=== PATIENT | female | born 1940 | race Caucasian/White ===

== ENCOUNTER 2020-03-01 08:59 | Outpatient (CLI) | payer MEDICARE, SELFPAY ==
--- NOTE | 2020-03-01 09:06 | MM_ITS ---
WS: [id number] BILATERAL DIGITAL SCREENING MAMMOGRAPHY WITH CAD CLINICAL INFORMATION: SCREENING HISTORY: Screening mammogram. Right breast soreness COMPARISON: TECHNIQUE: Bilateral CC and MLO views. FINDINGS: Scattered fibroglandular densities bilaterally. No suspicious focal mass, asymmetry, calcifications, or architectural distortion. No evidence of malignancy. Vascular calcification. MM/[place] [id number] IMPRESSION: BI-RADS: 2-Benign FOLLOW UP: 1 Year Follow-up Recommend return to annual screening mammography.
== END 2020-03-01 09:00 | disposition home or self-care (01) ==
LOC: RADSHAW 09:05
PROVIDERS: PCP Family Medicine; Visit Provider Family Medicine
DX: Z12.31 Encounter for screening mammogram for malignant neoplasm of breast (principal)
CPT/HCPCS: 77067

== ENCOUNTER → 2020-03-23 09:26 | Outpatient (BNVA) | payer MEDICARE, SELFPAY | PROVIDERS: PCP Family Medicine; Referring Provider Dermatology; Visit Provider Dermatology | DX: L81.4 Other melanin hyperpigmentation (principal); D22.9 Melanocytic nevi, unspecified; L82.1 Other seborrheic keratosis; L82.0 Inflamed seborrheic keratosis | CPT/HCPCS: 17110; 99203 ==

== ENCOUNTER 2021-04-07 13:36 | Outpatient (CLI) | payer MEDICARE, SELFPAY ==
--- NOTE | 2021-04-07 13:40 | MM_ITS ---
WS: [id number] BILATERAL DIGITAL SCREENING MAMMOGRAPHY WITH CAD CLINICAL INFORMATION: SCREENING HISTORY: Screening mammogram. No current complaints. COMPARISON: March 01, 2020 TECHNIQUE: Bilateral CC and MLO views. FINDINGS: Scattered fibroglandular densities bilaterally. No suspicious focal mass, asymmetry, calcifications, or architectural distortion. No evidence of malignancy. A few tiny punctate calcifications. MM/[place] [id number] IMPRESSION: BI-RADS: 2-Benign FOLLOW UP: 1 Year Follow-up Recommend return to annual screening mammography.
== END 2021-04-07 13:37 | disposition home or self-care (01) ==
LOC: RADSHAW 13:39
PROVIDERS: PCP Family Medicine; Visit Provider Family Medicine
DX: Z12.31 Encounter for screening mammogram for malignant neoplasm of breast (principal)
CPT/HCPCS: 77067

== ENCOUNTER 2022-04-13 08:17 | Outpatient (CLI) | payer MEDICARE, SELFPAY ==
--- NOTE | 2022-04-13 08:26 | MM_ITS ---
WS: [id number] SCREENING DIGITAL BREAST TOMOSYNTHESIS MAMMOGRAM WITH CAD HISTORY: SCREEN COMPARISON: 04/07/2021, 03/01/2020 and 02/27/2019 Bilateral CC and MLO with tomosynthesis and synthetic mammography submitted. Computer aided detection analyzed. Breast composition: There are scattered areas of fibroglandular density. As a spiculated asymmetry me asuring 8.2 mm and this posterior LEFT breast just medial to the nipple line. Not identified with cer tainty on the lateral projection. This is just below the nipple line. No additional abnormalities. MM/[place] [id number] IMPRESSION: BI-RADS: 0-Incomplete: Need additional imaging evaluation FOLLOW UP: Need Additional Imaging LEFT breast: Spot compression views (CC ). True ML. Ultrasound to follow if abn ormality persists.
== END 2022-04-13 08:18 | disposition home or self-care (01) ==
PROVIDERS: PCP Family Medicine; Visit Provider Family Medicine
DX: Z12.31 Encounter for screening mammogram for malignant neoplasm of breast (principal)
CPT/HCPCS: 77063; 77067

== ENCOUNTER 2022-05-14 13:24 | Outpatient (CLI) | payer MEDICARE, SELFPAY ==
--- NOTE | 2022-05-14 13:35 | MM_ITS ---
WS: [id number] ADDITIONAL VIEWS LEFT MAMMOGRAM WITH DIGITAL BREAST TOMOSYNTHESIS. HISTORY: Abnormal mammogram COMPARISON: 04/13/2022 when 04/07/2021 Spot compression views LEFT breast in CC, MLO projections and true ML submitted with digital breast t omosynthesis and SM. The asymmetry noted on the LEFT CC projection seen on 04/13/2022 is no longer present. Resolved with additional imaging. Therefore superimposed fibroglandular densities. MM/[id number] IMPRESSION: BI-RADS: 2-Benign FOLLOW UP: 1 Year Follow-up Return to annual screening mammography.
== END 2022-05-14 13:25 | disposition home or self-care (01) ==
PROVIDERS: PCP Family Medicine; Visit Provider Family Medicine
DX: R92.8 Other abnormal and inconclusive findings on diagnostic imaging of breast (principal)
CPT/HCPCS: 77061; G0279

== ENCOUNTER → 2023-03-08 08:06 | Outpatient (BNVA) | payer MEDICARE, SELFPAY | PROVIDERS: PCP Family Medicine; Visit Provider Family Medicine | DX: I10 Essential (primary) hypertension (principal) | CPT/HCPCS: 80053; 80061 ==

== ENCOUNTER → 2023-03-26 09:30 | Outpatient (BNVA) | payer MEDICARE, SELFPAY | PROVIDERS: PCP Family Medicine; Visit Provider Nurse Practitioner Family | DX: L57.8 Other skin changes due to chronic exposure to nonionizing radiation (principal); L81.4 Other melanin hyperpigmentation; D23.61 Other benign neoplasm of skin of right upper limb, including shoulder; Z12.83 Encounter for screening for malignant neoplasm of skin | CPT/HCPCS: 99213 ==

== ENCOUNTER 2023-06-05 11:09 | Outpatient (CLI) | payer MEDICARE, SELFPAY ==
--- NOTE | 2023-06-05 11:21 | MM_ITS ---
WS: [id number] Bilateral screening 3D tomosynthesis digital mammogram, 06/05/2023 Clinical Data: SCREENING Comparison: 05/14/2022, 04/13/2022, 04/07/2021, 03/01/2020, 02/27/2019, 12/27/2017, 12/26/2016, 10/24/2015, 10/06/2014, 10/05/2013, 07/14/2012, 04/03/2011, 03/21/2010, 02/28/2009, 02/11/2008. Findings: The breast parenchymal pattern shows fibroglandular tissue. No spiculated masses or clustered calcifi cations are seen. There are no secondary signs of carcinoma. Impression: 1. Negative bilateral mammogram unchanged. 2. Recommend annual screening mammograms. MM/[place] [id number] BIRADS: 1-Negative FOLLOW UP: 1 Year Follow-up The CAD truckload checker was used.
== END 2023-06-05 11:10 | disposition home or self-care (01) ==
LOC: RAD 11:09
PROVIDERS: PCP Family Medicine; Visit Provider Family Medicine
DX: Z12.31 Encounter for screening mammogram for malignant neoplasm of breast (principal)
CPT/HCPCS: 77063; 77067

== ENCOUNTER → 2024-02-25 09:00 | Outpatient (BNVA) | payer MEDICARE, SELFPAY | PROVIDERS: PCP Family Medicine; Visit Provider Family Medicine | DX: I10 Essential (primary) hypertension (principal) | CPT/HCPCS: 80053; 80061; 85025 ==

== ENCOUNTER → 2024-03-26 09:12 | Outpatient (BNVA) | payer MEDICARE, SELFPAY | PROVIDERS: PCP Family Medicine; Visit Provider Nurse Practitioner Family | DX: D48.5 Neoplasm of uncertain behavior of skin (principal); L72.0 Epidermal cyst; L57.8 Other skin changes due to chronic exposure to nonionizing radiation; D22.39 Melanocytic nevi of other parts of face; L81.4 Other melanin hyperpigmentation; D23.61 Other benign neoplasm of skin of right upper limb, including shoulder | CPT/HCPCS: 11102; 99213 ==

== ENCOUNTER 2024-06-10 09:12 | Outpatient (CLI) | payer MEDICARE, SELFPAY ==
--- NOTE | 2024-06-10 09:22 | MM_ITS ---
WS: [id number] BILATERAL SCREENING DIGITAL TOMOSYNTHESIS MAMMOGRAM WITH CAD HISTORY: SCREENING COMPARISON: 06/05/2023, 05/14/2022, 04/07/2021 Bilateral CC and MLO views with tomosynthesis and synthetic mammography submitted. Computer aided det ection analyzed. Breast composition: There are scattered areas of fibroglandular density. No suspicious masses, microc alcifications or architectural distortion. Benign calcifications in each breast. MM/MM scr tomosynthesis [id number] IMPRESSION: BI-RADS: 2 - Benign. FOLLOW UP: 1 Year Follow-up
== END 2024-06-10 09:13 | disposition home or self-care (01) ==
PROVIDERS: PCP Family Medicine; Visit Provider Family Medicine
DX: Z12.31 Encounter for screening mammogram for malignant neoplasm of breast (principal); R92.323 Mammographic fibroglandular density, bilateral breasts; R92.1 Mammographic calcification found on diagnostic imaging of breast
CPT/HCPCS: 77063; 77067

== ENCOUNTER → 2024-07-15 10:31 | Outpatient (BNVA) | payer MEDICARE, SELFPAY | PROVIDERS: PCP Family Medicine; Visit Provider Family Medicine | DX: R30.0 Dysuria (principal) | CPT/HCPCS: 81000 ==

== ENCOUNTER → 2024-07-16 08:59 | Outpatient (BNVA) | payer MEDICARE, SELFPAY | PROVIDERS: PCP Family Medicine; Visit Provider Family Medicine | DX: M54.9 Dorsalgia, unspecified (principal) | CPT/HCPCS: 87086 ==

== ENCOUNTER → 2024-07-22 10:02 | Outpatient (BNVA) | payer MEDICARE, SELFPAY | PROVIDERS: PCP Family Medicine; Visit Provider Family Medicine | DX: N76.0 Acute vaginitis (principal) | CPT/HCPCS: 81513; 87481; 87491; 87591; 87661 ==

== ENCOUNTER → 2025-03-22 12:58 | Outpatient (BNVA) | payer MEDICARE, SELFPAY | PROVIDERS: PCP Family Medicine; Visit Provider Family Medicine | DX: I10 Essential (primary) hypertension (principal) | CPT/HCPCS: 80053; 80061; 84443; 85025 ==

== ENCOUNTER → 2025-04-08 08:16 | Outpatient (BNVA) | payer MEDICARE, SELFPAY | PROVIDERS: PCP Family Medicine; Visit Provider Nurse Practitioner Family | DX: D18.01 Hemangioma of skin and subcutaneous tissue (principal); D23.61 Other benign neoplasm of skin of right upper limb, including shoulder; L57.8 Other skin changes due to chronic exposure to nonionizing radiation; L81.4 Other melanin hyperpigmentation; L82.1 Other seborrheic keratosis; L72.0 Epidermal cyst; L82.0 Inflamed seborrheic keratosis; R20.8 Other disturbances of skin sensation; R58 Hemorrhage, not elsewhere classified; Z78.9 Other specified health status; L53.8 Other specified erythematous conditions; L29.89 Other pruritus | CPT/HCPCS: 10060; 17110; 99213 ==

== ENCOUNTER 2025-06-11 10:24 | Outpatient (CLI) | payer MEDICARE, SELFPAY ==
--- NOTE | 2025-06-11 10:35 | MM_ITS ---
WS: [id number] BILATERAL 3D TOMOSYNTHESIS DIGITAL SCREENING MAMMOGRAPHY WITH CAD CLINICAL INFORMATION: SCREENING HISTORY: Screening mammogram. No current complaints. COMPARISON: 2023 TECHNIQUE: Bilateral CC and MLO views. FINDINGS: Scattered fibroglandular densities bilaterally. No suspicious focal mass, asymmetry, calcifications, or architectural distortion. No evidence of malignancy. Vascular calcifications. MM/MM scr tomosynthesis [id number] IMPRESSION: DENSITY: There are scattered areas of fibroglandular density. BI-RADS: 2 - Benign. FOLLOW UP: 1 Year Follow-up Recommend return to annual screening mammography.
== END 2025-06-11 10:25 | disposition home or self-care (01) ==
LOC: RAD 10:27
PROVIDERS: PCP Family Medicine; Visit Provider Family Medicine
DX: Z12.31 Encounter for screening mammogram for malignant neoplasm of breast (principal); R92.323 Mammographic fibroglandular density, bilateral breasts; R92.1 Mammographic calcification found on diagnostic imaging of breast
CPT/HCPCS: 77063; 77067